=== PATIENT | female | born 1975 | race Caucasian/White ===

== ENCOUNTER 2023-08-03 18:43 | Outpatient (CLI) | payer OTHER, SELFPAY ==
--- NOTE | 2023-08-03 19:00 | MM_ITS ---
Patient: MATHEW CASTELLANOS Facility:?[facility] RIS Patient ID:?[id number] Site Patient ID:?[id number]. Site :?[id number] Study:?XRay-Breast Bilateral 3D W/CAD-08/03/2023 7:18:47 PM Ordering Physician:Judy Marin Final Report: BILATERAL SCREENING MAMMOGRAM WITH COMPUTER-AIDED DETECTION AND TOMOSYNTHESIS TECHNIQUE: CC and MLO views were obtained. These mammographic images have been obtained using full-field digital technique. These mammographic images were interpreted with the benefit of computer-aided detection. Breast Tomosynthesis was used in this interpretation. COMPARISON FILM: 09/08/21, 09/02/21. FINDINGS: There are scattered areas of fibroglandular density. IMPRESSION: There is no radiographic evidence for malignancy. ASSESSMENT: BI-RADS Category 1: Negative RECOMMENDATION: Routine screening mammogram in 1 year. A lay language report of this examination will be provided to the patient. Rudy Louis M.D. Diagnostic Radiologist [email or web address] DSM/sp R& Transcribed: 2:41 p.m. SP/Dictated by: Rudy Louis MD @ 08/04/2023 10:29:00 AM Signed by:?Rudy Louis MD @08/04/2023 3:20:33 PM (Electronic Signature)
== END 2023-08-03 18:44 | disposition home or self-care (01) ==
LOC: MAMMO 18:43
PROVIDERS: PCP Nurse Practitioner Family; Visit Provider Nurse Practitioner Family
DX: Z12.31 Encounter for screening mammogram for malignant neoplasm of breast (principal)
CPT/HCPCS: 77063; 77067

== ENCOUNTER 2023-08-24 15:21 | Outpatient (CLI) | payer OTHER, SELFPAY | END 2023-08-24 15:22 | disposition home or self-care (01) | LOC: NFLDREF 08-25 10:46 | PROVIDERS: PCP Nurse Practitioner Family; Referring Provider Nurse Practitioner Family; Visit Provider Nurse Practitioner Family | DX: N39.0 Urinary tract infection, site not specified (principal); B96.20 Unspecified Escherichia coli [E. coli] as the cause of diseases classified elsewhere | CPT/HCPCS: 81001; 87086; 87186 ==

== ENCOUNTER 2025-01-23 09:29 | Outpatient (CLI) | payer OTHER, SELFPAY ==
--- NOTE | 2025-01-23 09:45 | CRLHL7_ITS ---
For Patients: As a result of the Century Cures Act, medical imaging exams and procedure reports are released immediately into your electronic medical record. You may view this report before your referring provider. If you have questions, please contact your health care provider. INDICATION: BILATERAL SCREENING MAMMOGRAM, ASYMPTOMATIC 49 Y/O FEMALE COMPARISON: 09/08/2021, 09/02/2021 TECHNIQUE: Digital mammogram in CC and MLO projections including computer-aided detection (CAD) and tomosynthesis. BREAST COMPOSITION: There are scattered areas of fibroglandular density. FINDINGS: No suspicious findings. ASSESSMENT: BI-RADS 1 Negative RECOMMENDATION: Annual screening mammogram. A lay language report of this examination will be provided to the patient. Dictated by: Domonique Paulino MD @ 01/23/2025 15:45:29 (Electronically Signed)
== END 2025-01-23 09:30 | disposition home or self-care (01) ==
LOC: MAMMO 09:29
PROVIDERS: PCP Nurse Practitioner Family; Visit Provider Nurse Practitioner Family
DX: Z12.31 Encounter for screening mammogram for malignant neoplasm of breast (principal)
CPT/HCPCS: 77063; 77067